=== PATIENT | female | born 2000 | race Caucasian/White ===

== ENCOUNTER 2020-02-04 02:30 | Outpatient (CLI) | payer MEDICAID, SELFPAY ==
--- NOTE | 2020-02-04 14:45 | DI.MRI_ITS ---
EXAM: MR BRAIN WO CLINICAL HISTORY: memory loss; known congenital brain changes [facility] [place]41.3 [place]NES[place], G93.89. TECHNIQUE: Multiplanar multisequence MRI of the brain was performed. CONTRAST MATERIAL: Noncontrast FINDINGS: VENTRICLES AND EXTRA AXIAL SPACES: Stable dilatation of the lateral ventricles, left greater than rig ht. HEMORRHAGE: None. CEREBRAL PARENCHYMA: Stable tiny high signal foci in the white matter directly adjacent to the superi or aspect of the left lateral ventricle. No focus of restricted diffusion to suggest acute infarct. N o space-occupying lesion identified. MIDLINE SHIFT: None. BRAINSTEM/CEREBELLUM: Normal. VISUALIZED PARANASAL SINUSES/MASTOIDS: Clear. The vascular flow voids appear intact. The orbits are unremarkable. IMPRESSION: Stable dilatation of the lateral ventricles. No acute abnormality. DATA REPOSITORY:
== END 2020-02-04 02:50 ==
PROVIDERS: PCP Nurse Practitioner; Visit Provider Psychiatry & Neurology Neurology
DX: G93.89 Other specified disorders of brain (principal); R41.3 Other amnesia
CPT/HCPCS: 70551

== ENCOUNTER 2020-11-02 18:14 | Emergency (ER) | payer MEDICAID, SELFPAY ==
--- NOTE | 2020-11-02 18:30 | DI.CT_ITS ---
EXAM: CT ABDOMEN PELVIS W CLINICAL HISTORY: right lower and mid abdominal pain. TECHNIQUE: Imaging Protocol: Axial computed tomography images with coronal and sagittal reformatted images were created and reviewed CONTRAST MATERIAL: Intravenous: Omnipaque 100cc Oral: None COMPARISON: No exams were available for comparison FINDINGS: VISUALIZED LUNG BASES: Mild benign-appearing increased markings both lung bases. No pleural effusion s. Tiny granuloma left lung extreme base.. ABDOMEN: There is no ascites. LIVER: There are no obvious focal hepatic lesions evident . GALLBLADDER/BILIARY: No obvious gallbladder pathology. CBD is not dilated. PANCREAS: No evidence of pancreatic mass nor dilatation of the pancreatic duct. SPLEEN: Spleen size is normal. Small splenule noted. No intrasplenic lesions. Splenic and portal v eins are patent. ADRENALS: There are no significant adrenal masses. KIDNEYS:No cysts evident. There are calculi in the lower pole of the right kidney, nonobstructive. T hese measure up to 6 millimeters. There are no calculi in the right ureter nor in the nondistended u rinary bladder. There are no calculi seen in the opposite-left kidney. The left ureter is significa ntly dilated down to the ureterovesical junction, exhibiting diameter up to 2.6 cm. There are no obs tructing radiopaque calculi evident nor obvious mass. This requires urology consultation. There is no prominent caliectasis in the ipsilateral-left kidney.. ABDOMINAL AORTA: Abdominal aorta is not enlarged. There is some mild nonspecific streaking around th e origin of the superior mesenteric artery without significant stenosis at this level. LYMPH NODES:There is no retroperitineal nor paraaortic adenopathy. ABDOMINAL WALL/GI: No evidence of significant anterior abdominal wall hernia. No bowel obstruction. PELVIS: GI: There is some dense material noted in the appendix but no evidence of acute appendicitis.No evide nce of sigmoid diverticulitis.No obvious colitis pattern. LYMPH NODES: There is no intrapelvic nor inguinal adenopathy. REPRODUCTIVE: Age appropriate. URINARY BLADDER: No calculi nor obvious masses evident OSSEOUS: No significant osseous lesions. IMPRESSION: 1. There is right nephrolithiasis. No obstruction on the right side. 2. Although there are no calculi in left kidney, the left ureter is significantly dilated up to 2.7 c m, this dilated all the way down to the ureterovesical junction. There is no obvious radiopaque calc ulus at this level. Urology consultation is recommended for this significant finding. RADIATION DOSE DELIVERED: 1,037.23mGy.cm Total DLP DATA REPOSITORY: All CT scans at this facility are submitted to the National Radiology Data Registry (NRDR) Dose Index Registry (DIR) with the [employer] (ACR). RADIATION OPTIMIZATION: All CT scans at this facility use at least one of these dose optimization te chniques: automated exposure control; mA and/or kV adjustment per patient size (includes targeted exa ms where dose is matched to clinical indication); or iterative reconstruction.
[2020-11-02 18:32] VITALS: BP 137/81; PULSE 99; RESP 18; TEMP 36.6; O2SAT 99
--- NOTE | 2020-11-02 19:05 | W.ED.GENAD ---
Discharge Plan Disposition Patient Disposition: HOME Condition: Good Discharge Details Clinical Impression: Abdominal bloating with cramps Primary Care Provider: Dilcia Sinclair ED Provider: Zac Crenshaw Home Meds and New Rx's Prescriptions: No Action No Known Home Meds RF: 0 Discharge Instructions Instructions: Abdominal Pain (ED) Additional Instructions: At this time your CAT scan shows no evidence of life-threatening abnormality or significant problem. I suspect that you may have a mild gastric bug, or generalized irritation of your intestines. Please stick with a liquid diet of soups, smoothies, occasional oatmeal, for the next few days. Take Zofran as needed for nausea. If you notice any worsening of your symptoms, or any new symptoms such as vomiting, diarrhea, fever, chills, shortness of breath, chest pain, numbness, weakness, or fainting , please return immediately to the emergency department for reevaluation. Please follow up with your primary care provider as soon as possible for reassessment and reevaluation. As always, it was a pleasure participating in your medical care today. Referrals: Dilcia Sinclair [Primary Care Provider] - Discharge Data Discharge Date/Time-TO BE ENTERED AT DEPARTURE: 11/02/20 20:05 Medical Decision Making 19-year-old female with a past medical history of cerebral ventriculomegaly, Chiari malformation, congenital duplication of the esophagus, previous kidney stones, presents today for evaluation of abdominal pain. The patient states that for the last 4 days she has had mild abdominal pain in the lower abdominal region, in addition to bloating. She did have some constipation but also diarrhea. She admits to nausea but no vomiting. She states that she did take some prune juice and this did procure a bowel movement but this did not change her symptoms at all. She denies any vaginal discharge, urinary complaints, and states that is been years since she has had a kidney stone. She denies any chest pain or shortness of breath. She is uncertain as to when her last menstrual period was. She has been eating and this does not seem to change her symptoms significantly. She has no other complaints at this time. No other modifying factors. Physical exam demonstrates mild lower abdominal tenderness in the periumbilical and right lower quadrant. No pelvic pain. No vaginal discharge. No signs of an acute surgical abdomen clinically. The patient's pain location symptoms we will get a CAT scan to rule out appendectomy, gently rehydrate, give Toradol, evaluate for kidney stone, monitor closely and reassess. 10 PM Laboratory work-up has returned, white count, no bandemia. Electrolytes normal, urinalysis negative. CT scan shows no evidence of acute process, reassessment demonstrates a notably nonsurgical abdomen, patient feels much better. Able to tolerate p.o. Will give Zofran for home, suspect mild viral gastroenteritis. Discussed red flags which to return. On reexamination no clinical evidence of acute appendicitis, or other surgical etiology. Discussed the case with patient's father. I have extensively reviewed the treatment plan and discharge instructions with the patient and their family. I have addressed all patient concerns at this time. The patient and family was made aware of what symptoms to monitor for that would warrant a return to the emergency department. Discussed the plan with the patient and family, they demonstrate verbal understanding and agreement with our assessment and plan at this time. The documentation in this chart was dictated using Quest app dictation software. Please excuse any dictation errors. FINDINGS: Liver: Normal. No mass. Gallbladder and bile ducts: Normal. No calcified stones. No ductal dilation. Pancreas: Normal. No ductal dilation. Spleen: 6 mm cystic focus in the spleen anteriorly. Adrenal glands: Normal. No mass. Kidneys and ureters: Cluster of nonobstructing calculi in the lower pole of the right kidney. No hydronephrosis. There is marked dilatation of the mid and distal left ureter to the level of the ureteropelvic junction. No obstructing ureteral calculi are identified. Stomach and bowel: Unremarkable. No obstruction. No mucosal thickening. Appendix: Normal appendix. Intraperitoneal space: Unremarkable. No free air. No significant fluid collection Vasculature: Unremarkable. No abdominal aortic aneurysm. Lymph nodes: Unremarkable. No enlarged lymph nodes. Urinary bladder: Unremarkable as visualized. Reproductive: Unremarkable as visualized. Bones/joints: Unremarkable. No acute fracture. Soft tissues: Tiny umbilical hernia containing fat. IMPRESSION: 1. Right nephrolithiasis. 2. Left hydroureter which may be chronic. Thank you for allowing us to participate in the care of your patient. Dictated and Authenticated by: Jhony Mosley MD 11/02/2020 8:11 PM Eastern Time ([place] & [place]) HPI General Date/Time Provider Initiated Documentation: 11/02/20 18:34. HPI Narrative: 19-year-old female with a past medical history of cerebral ventriculomegaly, Chiari malformation, congenital duplication of the esophagus, previous kidney stones, presents today for evaluation of abdominal pain. The patient states that for the last 4 days she has had mild abdominal pain in the lower abdominal region, in addition to bloating. She did have some constipation but also diarrhea. She admits to nausea but no vomiting. She states that she did take some prune juice and this did procure a bowel movement but this did not change her symptoms at all. She denies any vaginal discharge, urinary complaints, and states that is been years since she has had a kidney stone. She denies any chest pain or shortness of breath. She is uncertain as to when her last menstrual period was. She has been eating and this does not seem to change her symptoms significantly. She has no other complaints at this time. No other modifying factors. Related Data Home Medications Medication Instructions Recorded Confirmed Unknown [No Known Home Meds] 01/31/17 11/02/20 Allergies Allergy/AdvReac Type Severity Reaction Status Date / Time Sulfa (Sulfonamide Allergy Mild Skin Rash Unverified 11/02/20 18:37 Antibiotics) Penicillins AdvReac Mild Nausea Unverified 11/02/20 18:37 amoxicillin AdvReac Unknown Unverified 11/02/20 18:37 General Stated Complaint: Abd Prob SULEIMAN: 3 Review of Systems All systems reviewed & are unremarkable except as noted in HPI and below PFSH Medical History (Updated 11/02/20 @ 20:51 by Zac Crenshaw DO) Acanthosis nigricans Arachnoid cyst Cerebral ventriculomegaly Chiari malformation borderline 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 Nephrolithiasis Scoliosis thoracic spine Severe obesity Skull lesion hemangioma Syrinx of spinal cord Vesico-ureteral reflux Vitamin D deficiency Surgical History H/O lithotripsy age 2 S/P nasal surgery ?tumor excision Family History Other Dementia Depression Diabetes Heart disease Hypertension Social History Smoking/Tobacco Use Status: Never Smoking risk assessment performed?: Yes Alcohol Intake: never Drug use: Never Household members: family Housing: apartment Number of Children: 0 current occupation: Not currently employed Pets and animals: Yes Pets and animals: cat(s), dog(s) and guinea pig(s) What is your relationship status?: never Panel score (0-1 are the most socially isolated patients): 0 Seatbelt use: always Do you feel safe at home: Yes Do you feel safe in your relationship?: Yes Exam Narrative Exam Narrative: 1.Const: Well-nourished, Well-developed, appearing stated age 2.Eyes: PERRL, no conjunctival injection, and symmetrical lids. 3.ENT: Atraumatic external nose and ears. Moist MM. Neck: Symmetric, trachea midline, No thyromegaly. 4.CVS: +S1/S2, No murmurs or gallops. Peripheral pulses 2+ and equal in all extremities. Brisk capillary refill in all extremities. 5.RESP: Unlabored respiratory effort. Clear to auscultation bilaterally. No wheezes rales or rhonchi 6.GI: Soft, nondistended, no guarding, no rebound. Mild tenderness in the right lower and periumbilical region. Negative Rovsing sign. Mild pain at McBurney's point. No significant pelvic tenderness. No epigastric tenderness. Negative Todd sign. 7.MSK: Normocephalic/Atraumatic, Extremities w/o deformity or ttp No cyanosis or clubbing, Normal movement of all extremities 8.Skin: Warm, Dry. No rashes or lesions. 9.Neuro: civil rights attorney II-XII grossly intact. Sensation grossly intact, no focal neurologic deficits. 10.Psych: (AAO) x3. Appropriate mood and affect Course Vital Signs Vital signs: Vital Signs Temperature 36.6 C 11/02/20 18:32 Pulse 99 H 11/02/20 18:32 Respiratory Rate 18 11/02/20 18:32 Blood Pressure 137/81 11/02/20 18:32 Pulse Oximetry 99 11/02/20 18:32 Temperature 36.6 C 11/02/20 18:32 Temperature Source Temporal Artery Scan 11/02/20 18:32 Pulse 99 H 11/02/20 18:32 Respiratory Rate 18 11/02/20 18:32 Respiratory Effort Non-Labored 11/02/20 18:37 Blood Pressure 137/81 11/02/20 18:32 Blood Pressure Position Sitting 11/02/20 18:32 Pulse Oximetry 99 11/02/20 18:32 Oxygen Delivery Method Room Air 11/02/20 18:32 Oxygen Flow Rate 0 11/02/20 18:32 Pain Level 6 11/02/20 18:32
[2020-11-02 19:33] LABS: Abs Immature Grans 0.04 10^3/uL (0.0-0.06); Absolute Basophil Count 0.04 10^3/uL (0.0-0.2); Absolute Eosinophil Count 0.05 10^3/uL (0.0-0.7); Absolute Lymphocyte Count 1.49 10^3/uL (1.2-3.4); Basophils % 0.3; Eosinophils % 0.4; HGB 13.8 g/dL (11.2-15.7); Immature Grans % 0.3; Lymphocytes % 12.2; MCH 26.3 pg (27.0-33.0); MCHC 32.1 % (32.0-36.0); MCV 81.9 fL (80-95); MPV 10.1 fL (8.0-11.0); Monocytes % 6.1; Neutrophils % 80.7; Nucleated RBC 0 %; Platelet Count 326 10^3/uL (130-400); RBC 5.25 10^6/uL (3.93-5.22); RDW 12.5 % (11.7-14.6); RDW-SD 37.2 fL; WBC 12.21 10^3/uL (4.4-10.8)
[2020-11-02] MEDS: Omnipaque 350 MG/ML 100 ML BTL IJ (19:34)
[2020-11-02] MEDS: Normal Saline Flush 10 ML SYR IVP (19:35)
[2020-11-02] MEDS: Normal Saline - Diluent 50 ML VIAL IV (19:35)
[2020-11-02 19:39] LABS: Absolute Monocyte Count 0.74 10^3/uL (0.1-0.8); Absolute Neutrophil Count 9.85 10^3/uL (1.2-6.7)
[2020-11-02 19:46] LABS: ALT 37 U/L (14-59); AST 20 U/L (15-37); Albumin 3.8 g/dL (3.4-5.0); Alkaline Phosphatase 78 U/L (46-116); Anion Gap 9.8 mmol/L (3-11); BUN 18 mg/dL (7-18); Bilirubin, Total 0.3 mg/dL (0.2-1.0); CO2 27.2 mmol/L (21.0-32.0); Calcium 9.4 mg/dL (8.5-10.1); Chloride 99 mmol/L (98-107); Glucose 118 mg/dL (74-106); Lipase 82 U/L (73-393); Potassium 4.2 mmol/L (3.5-5.1); Sodium 136 mmol/L (136-145); Total Protein 8.4 g/dL (6.4-8.2)
[2020-11-02] MEDS: Normal Saline 1,000 ML 1000 ML IV (19:50)
[2020-11-02] MEDS: Ondansetron 4 MG/2 ML VIAL IVP (19:51)
[2020-11-02] MEDS: Ketorolac 30 MG/ML VIAL IVP (19:54)
[2020-11-02 19:56] VITALS: BP 135/86; PULSE 89; RESP 18; O2SAT 100
[2020-11-02 20:10] LABS: Bilirubin Negative (Negative); Blood Negative (Negative); Clarity Clear (Clear); Glucose 250 mg/dL (Negative); Ketones Negative (Negative); Leukocyte Esterase Negative (Negative); Nitrite Negative (Negative); Specific Gravity 1.025 (1.005-1.025); Urobilinogen 0.2 EU/dL (Up TO 0.2)
--- NOTE | 2020-11-02 20:12 | DI.VRAD_ITS ---
PROCEDURE INFORMATION: Exam: CT Abdomen And Pelvis With Contrast Exam date and time: 11/02/2020 6:44 PM Age: 19 years old Clinical indication: Localized; Other: Right lower and mid abdominal pain; Prior surgery; Surgery date: 6+ months; Surgery type: Lithotripsy, HX of kidney stones, ; patient HX: Rlq and mid abdominal pain TECHNIQUE: Imaging protocol: Computed tomography of the abdomen and pelvis with contrast. Radiation optimization: All CT scans at this facility use at least one of these dose optimization techniques: automated exposure control; mA and/or kV adjustment per patient size (includes targeted exams where dose is matched to clinical indication); or iterative reconstruction. Contrast material: OMNIPAQUE 350; Contrast volume: 100 ml; Contrast route: INTRAVENOUS (IV); COMPARISON: No relevant prior studies available. FINDINGS: Liver: Normal. No mass. Gallbladder and bile ducts: Normal. No calcified stones. No ductal dilation. Pancreas: Normal. No ductal dilation. Spleen: 6 mm cystic focus in the spleen anteriorly. Adrenal glands: Normal. No mass. Kidneys and ureters: Cluster of nonobstructing calculi in the lower pole of the right kidney. No hydronephrosis. There is marked dilatation of the mid and distal left ureter to the level of the ureteropelvic junction. No obstructing ureteral calculi are identified. Stomach and bowel: Unremarkable. No obstruction. No mucosal thickening. Appendix: Normal appendix. Intraperitoneal space: Unremarkable. No free air. No significant fluid collection. Vasculature: Unremarkable. No abdominal aortic aneurysm. Lymph nodes: Unremarkable. No enlarged lymph nodes. Urinary bladder: Unremarkable as visualized. Reproductive: Unremarkable as visualized. Bones/joints: Unremarkable. No acute fracture. Soft tissues: Tiny umbilical hernia containing fat. IMPRESSION: 1. Right nephrolithiasis. 2. Left hydroureter which may be chronic. Dictated and Authenticated by: Jhony Mosley MD. Ordering:HEATHER Frank MD
--- NOTE | 2020-11-02 21:04 | NUR.NOTE ---
Nursing Note: pt takes bottle of ODT zofran take home. Pt ambulatory steady gait.
== END 2020-11-02 20:05 | disposition home or self-care (01) ==
PROVIDERS: Emergency Provider Student in an Organized Health Care Education/Training Program; PCP Nurse Practitioner
DX: R14.0 Abdominal distension (gaseous) (principal); R10.31 Right lower quadrant pain; R19.7 Diarrhea, unspecified
CPT/HCPCS: 36415; 80053; 81025; 83690; 96361; 96374; 96375; 99285; 74177; 81003; 85025; J1885; J2405; J3490

== ENCOUNTER 2022-11-03 19:22 | Outpatient (REF) | payer MEDICAID, SELFPAY ==
[2022-11-03 19:02] LABS: Abs Immature Grans 0.02 10^3/uL (0.0-0.06); Absolute Basophil Count 0.05 10^3/uL (0.0-0.2); Absolute Eosinophil Count 0.16 10^3/uL (0.0-0.7); Absolute Lymphocyte Count 1.25 10^3/uL (1.2-3.4); Absolute Monocyte Count 0.46 10^3/uL (0.1-0.8); Absolute Neutrophil Count 5.73 10^3/uL (1.2-6.7); Basophils % 0.7; Eosinophils % 2.1; HGB 14.5 g/dL (11.2-15.7); Immature Grans % 0.3; Lymphocytes % 16.3; MCH 27.8 pg (27.0-33.0); MCV 84 fL (80-95); MPV 10.2 fL (8.0-11.0); Neutrophils % 74.6; Platelet Count 292 10^3/uL (130-400); RBC 5.22 10^6/uL (3.93-5.22); RDW 11.9 % (11.7-14.6); RDW-SD 36.4 fL; WBC 7.67 10^3/uL (4.4-10.8)
[2022-11-03 19:26] LABS: Anion Gap 7.9 mmol/L (3-11); BUN 14 mg/dL (7-18); CO2 27.1 mmol/L (21.0-32.0); CREATININE 0.8 mg/dL (0.55-1.02); Calcium 9.6 mg/dL (8.5-10.1); Chloride 99 mmol/L (98-107); Estimated GFR 106.77 (mL/min/1.73m2); FREE T4 1.02 ng/dL (0.76-1.46); Glucose 76 mg/dL (74-106); Potassium 4.2 mmol/L (3.5-5.1); Sodium 134 mmol/L (136-145); TSH 2.09 uIU/mL (0.36-3.74)
== END 2022-11-03 19:23 | disposition home or self-care (01) ==
LOC: NCHCN 19:22
PROVIDERS: PCP Nurse Practitioner Family; Visit Provider Nurse Practitioner Family
DX: E04.8 Other specified nontoxic goiter (principal); F41.8 Other specified anxiety disorders; E55.9 Vitamin D deficiency, unspecified
CPT/HCPCS: 80048; 82306; 84439; 84443; 85025

== ENCOUNTER → 2023-05-18 02:25 | Outpatient (CLI) | payer MEDICAID, SELFPAY ==
--- NOTE | 2023-05-18 | DI.US_ITS ---
Exam(s) US THYROID EXAM: US THYROID CLINICAL HISTORY: LOCALIZED SWELLING/MASS/LUMP NECK, R22.1, ? ENLARGED THYROID, E04.9. TECHNIQUE: Ultrasound thyroid performed using standard protocol. COMPARISON: No exams were available for comparison FINDINGS: ISTHMUS: 5.1 mm RIGHT LOBE: Size: 6.1 x 3.2 x 3.0 cm Echogenicity: There is a heterogeneous and hypervascular right lobe. Vascularity: Increased vascularity. Nodules: None. LEFT LOBE: Size: 6.2 x 3.4 x 3.9 cm Echogenicity: Diffusely heterogeneous without discrete nodule. Vascularity: Increased vascularity. Nodules: None. OTHER FINDINGS: None. IMPRESSION: Enlarged heterogeneous and hypervascular thyroid gland. The findings are suspicious for diffuse thyr oid disease such as thyroiditis. Please correlate with the patient's laboratory thyroid function nelli ues. DATA REPOSITORY:
== END ==
PROVIDERS: PCP Nurse Practitioner Family; Visit Provider Nurse Practitioner Family
DX: R22.1 Localized swelling, mass and lump, neck (principal)
CPT/HCPCS: 76536

== ENCOUNTER → 2023-07-06 01:42 | Outpatient (CLI) | payer MEDICAID, SELFPAY ==
--- NOTE | 2023-07-06 07:15 | DI.RAD_ITS ---
Exam(s) RF BARIUM SWALLOW EXAM: RF BARIUM SWALLOW CLINICAL HISTORY: dysphagia, food regurgitation, duplicate cyst,r13.10 TECHNIQUE: Esophagus performed both upright and recumbent GODOY position both single and air contrast technique CONTRAST MATERIAL: Oral barium Oral water soluble contrast was administered. COMPARISON: Prior CT scan October 2020 was reviewed. FINDINGS: CHEST X-RAY: The heart and pulmonary vasculature are within normal limits. The lungs are clear. No pl eural effusion or pneumothorax is present. Bidirectional thoracic scoliosis is noted. ESOPHAGRAM: Swallowing mechanism is grossly intact and there is no evidence of aspiration. No evidence of hypert ense upper esophageal sphincter. No evidence of Zenker's diverticulum. There are no abnormal tertia ry waves demonstrated in the esophagus. No evidence of achalasia. No fixed lesions. The GE junctio n appears unremarkable with no evidence of hiatal hernia nor Schatzki ring nor fixed lesion. Normal mucosal pattern seen at this level. There is no reflux demonstrated during this study. IMPRESSION: Normal esophogram RADIATION DOSE DELIVERED: amy Riley=58.0 mGy
[2023-07-06] MEDS: Barium Sulfate 60% W/V 355 ML BTL PO (09:56)
[2023-07-06] MEDS: Barium Sulfate 98% W/W 140 ML BTL PO (09:56)
[2023-07-06] MEDS: Simethicone/Sod Bicarb/Cit Ac, 4 gram PACKET 1 PACKET PO (09:58)
== END ==
PROVIDERS: PCP Nurse Practitioner Family; Visit Provider Surgery
DX: R11.10 Vomiting, unspecified (principal); R13.10 Dysphagia, unspecified
CPT/HCPCS: 74221; J3490

== ENCOUNTER 2023-08-01 12:26 | Day surgery (SDC) | payer MEDICAID, SELFPAY ==
--- NOTE | 2023-08-01 10:27 | ENDO_ITS ---
Date of service: 08/01/23 Time of Service: 13:53 Endoscopy Report DATE OF PROCEDURE: 08/01/23 PRE-OP DIAGNOSIS: Dysphagia and regurgitation POST-OP DIAGNOSIS: other (esophagitis due to reflux) PROCEDURE: EGD with biopsies SURGEON: Alena Squires ANESTHESIA TYPE: General:No Airway ESTIMATED BLOOD LOSS: 3 PATHOLOGY: other (Bx of esophagus at 32 cm and antrum) COMPLICATIONS: None DISPOSITION: same day INDICATIONS: Era is a very pleasant 22-year-old who comes in today to discuss having an upper endoscopy done. Her history of food regurgitation is suspicious for diverticulum. I have discussed this with Era and would like to start with a barium swallow prior to doing an upper endoscopy. This will show if there is a diverticulum and also give me an idea of her anatomy. The barium swallow was normal so she was schedule for an upper endoscopy. The procedure was described in detail as well as the possible complications. Her questions were answered. After conversation she had a good understanding of both the procedure and the complications and she wished to proceed. Risks, benefits and complications have been reviewed. Complications include but are not limited to bleeding, pain, perforation, sore throat, aspiration, and adverse reaction to the medications. Questions were entertained and answered to their satisfaction and they wished to proceed. No guarantees were given or implied. PROCEDURE DESCRIPTION: After informed consent was obtained the patient was take to the procedure room and placed in a supine position. Monitors were applied and a time out was done. The patients name, date of , procedure type, allergies to medications and metal in their body was reviewed. A bite block was placed and the patient was sedated. Once sedated and comfortable the gastroscope was advanced through the oropharynx which was grossly normal into the esophagus. The proximal and mid- esophagus were normal. In the distal esophagus there was mild inflammation noted. The scope was advanced into the stomach and through the pylorus into the 3rd portion of the duodenum. The duodenum was noted to be normal. The scope was retracted back into the stomach and biopsies were done to rule out H. pylori. There were no ulcers. The scope was retroflexed. The cardia and fundus were noted to be normal. There was no hiatal hernia noted. The scope was retracted back into the esophagus and biopsies were done of the GE junction to rule out Headley's. The Z line was regular. The GE junction was at 34 cm. Biopsies were done at 32 cm. The scope was removed and the patient was woken up and taken back to [facility] in stable condition. Follow up: 2 weeks
--- NOTE | 2023-08-01 10:30 | PDOC.DSDIS_ITS ---
Date of service: 08/01/23 Time of Service: 14:42 Discharge Plan Disposition Patient Disposition: Home Condition: Stable Discharge Details Reason For Visit: Dysphagia Attending Provider: Alena Squires Primary Care Provider: Yolanda Giron Home Meds and New Rx's Prescriptions: New omeprazole 40 mg capsule,delayed release(DR/EC) 40 mg PO DAILY Qty: 30 0RF Continued citalopram 20 mg tablet 20 mg PO DAILY Discharge Instructions Instructions: GERD (Gastroesophageal Reflux Disease) (DC) Additional Instructions: Findings: Mild inflammation of the esophagus Follow up: 2 weeks New Medication: Omeprazole 40 mg daily Please call if you develop: fevers >101.5 Nausea or Vomiting Abdominal pain that is not transient Rectal bleeding that is more then a tbsp A hard abdomen and inability to pass gas DAY SURGERY UNIT POST ENDOSCOPY INSTRUCTIONS Instructions for everyone who is given Anesthesia: For your safety, please do the following for the next 24 Hours: a. Do not drive or operate dangerous equipment b. Do not drink alcohol beverages or use any recreational drugs for the first 24 hours or while taking pain medications. The medications in your body may have a reaction that can be dangerous. c. Do not make any important decisions or sign any important papers 1. Generally there are no restrictions on your activity after a day or so has go ne by, but you may feel a bit fatigued for a few days. 2. After you arrive home you may have a light meal and return to a normal diet as you can tolerate it without feeling sick to your stomach. 3. After surgery, you may feel pain or discomfort. This should be only transient, but if it persists please contact your doctor. 4. If there are any questions regarding the findings of your procedure, please feel free to contact your doctor. 6. If you are unable to contact your doctor with a problem, contact the hospital at [phone]. 7. Continue all your regular medications unless directed otherwise. I understand the above instructions and have no questions. Signature of Patient or Responsible Adult Escort Date/Time Name of Responsible Adult Escort Signature of Nurse Date/Time Stand Alone Forms: Anesthesia Discharge Inst., Bj Ludwig (DSU) Referrals: Alena Squires MD [ [facility] STAFF PHYSICIAN] - Activity:: Activity as Tolerated Diet:: As Tolerated Discharge Orders Discharge Orders: Discharge Order (Routine); Ordered 08/01/23 Ordered By: Alena Squires DS: Diagnosis Discharge Diagnosis (1) Dysphagia: Status: Acute Asessment and Plan: Patient is seen and examined after their endoscopy. Patient has minimal sore throat. They have been able to tolerate liquids. They do not have any Nausea or Vomiting. They are not having any chest pain or shortness of breath. They have been able to pass gas and are not having any abdominal pain or distention. they have not vomited any blood. The vital signs have been stable-see nursing notes. We discussed findings on their endoscopy We reviewed the importance of lifestyle modifications- see diet recommendations We reviewed any new medications that the patient may be prescribed- see medicine reconciliation. Patient will either be sent a letter with the biopsy results or follow up in the office- see discharge instructions Patient was given explicit instructions for emergency follow up post endoscopy- see discharge instructions Patient verbalized understanding and was discharged in stable and satisfactory condition. See nursing notes.
[2023-08-01 12:48] VITALS: BP 108/66; PULSE 74; RESP 16; TEMP 36.8; O2SAT 100
[2023-08-01] MEDS: Lactated Ringers 1,000 ML 80 ML IV (13:07)
--- NOTE | 2023-08-01 13:21 | W.ANESPRE ---
General Info Date of Service Date Performed: 08/01/23 Height: 4 ft 10.5 in Weight: 82.1 kg Body Mass Index (BMI): 37.1 Surgical Procedure: Operation Date: 08/01/23 13:20 Proposed Procedure Side Surgeon p Gastroscopy Alena Squires MD Meds Allergies and Home Medications Allergies Allergy/AdvReac Type Severity Reaction Status Date / Time Sulfa (Sulfonamide Allergy Mild Skin Rash Unverified 08/01/23 13:02 Antibiotics) Penicillins AdvReac Mild Nausea Unverified 08/01/23 13:02 amoxicillin AdvReac Unknown Unverified 08/01/23 13:02 Home Medication Medication Instructions Recorded citalopram 20 mg tablet 20 mg PO DAILY 09/26/22 Current Visit Medications: Current Medications Generic Name Dose Route Start Last Admin Trade Name Freq PRN Reason Stop Dose Admin Ringer's Solution 1,000 mls @ 80 mls/hr 08/01/23 06:00 08/01/23 13:07 IV 08/30/23 23:59 80 mls/hr INFUSION ELIZABETH Administration IV Miscellaneous Supplies 1 each 08/01/23 06:00 Iv Access IV 08/30/23 23:59 DIRECTED ELIZABETH Ondansetron HCl 4 mg 08/01/23 10:30 Ondansetron 4 Mg/2 Ml Vial IVP 08/31/23 10:29 Q4H PRN PRN Nausea / Vomiting Sodium Chloride 0 ml 08/01/23 06:00 Normal Saline Flush 10 Ml Syr IV 08/30/23 23:59 PRN PRN Sodium Chloride 0 ml 08/01/23 06:00 Normal Saline 10 Ml Vial IJ 08/30/23 23:59 DIRECTED PRN Sterile Water 0 ml 08/01/23 06:00 Water,Injection,Sterile 10 Ml Vial IJ 08/30/23 23:59 DIRECTED PRN PFSH Active Problems Active Problems: Problem Status Onset Code Regurgitation of food R11.10 Dysphagia R13.10 Anxiety F41.9 Cerebral ventriculomegaly G93.89 Memory loss R41.3 Medical History Medical History Syrinx of spinal cord Nephrolithiasis Vitamin D deficiency Acanthosis nigricans Congenital duplication of esophagus non-communicating Severe obesity Chiari malformation borderline Arachnoid cyst Scoliosis thoracic spine Skull lesion hemangioma Hypocalciuria Vesico-ureteral reflux Surgical History Surgical History S/P nasal surgery ?tumor excision H/O lithotripsy age 2 Tobacco Smoking/Tobacco Use Status: Never Alcohol Alcohol Intake: never Substance Use Substance use: Never Substance use type: does not use Prental History History 0 Para Hx # Term Pregnancies Multiple births Hx # Pregnancies Ectopic pregnancies AB induced Hx Number of Living Children AB spontaneous Vital Signs and Lab Results Vital Signs Most Recent Vital Signs in EMR: Most Recent Vital Signs Temp Pulse Resp BP Pulse Ox 36.8 C 74 16 108/66 100 08/01/23 12:48 08/01/23 12:48 08/01/23 12:48 08/01/23 12:48 08/01/23 12:48 Point of Care Results Point of Care Results: POC- Test(urine) Negative 08/01/23 13:03 Lab Results Blood Type / Crossmatch: No Data to Display Complete Blood Count: No Data to Display Complete Metabolic Panel: No Data to Display Liver Function Panel: No Data to Display Coagulation Panel: No Data to Display Cardiac Panel: No Data to Display Arterial Blood Gas: No Data to Display Venous Blood Gas: No Data to Display Pancreas Panel: No Data to Display Thyroid Panel: No Data to Display Infectious Disease: No Data to Display Blood Cultures: No Data to Display Toxicology Panel: No Data to Display Panel: No Data to Display Anesthesia Assessment and Plan Anesthesia History Personal History: No History of Anesthesia Complications Family History: No Family History of Anesthesia Complications Exercise Tolerance Exercise Tolerance: Metabolic Equivalents>4 Pertinent Negatives Pertinent Negatives: No Major Cardiovascular Symptoms or Complaints and No Major Pulmonary Symptoms or Complaints Cardiac & Pulmonary Exam Cardiac Exam: Normal S1/S2 Heart Sounds Pulmonary Exam: Clear Bilateral Breath Sounds Implantable Cardiac Device Does patient have a Pacemaker or an ICD?: No Airway Exam Known Difficult Airway: No Mallampati Class: 1 Mouth Opening: Normal (> 3cm) Thyromental Distance: Greater than 3 cm Neck Range of Motion: Full ROM (short neck) Neck Circumference: Normal Teeth Condition: Normal Dentition (significant underbite) ASA Classification ASA Score: ASA 3 Emergency Case?: No NPO Status NPO Status: NPO Clears >2 hours, Solids >8 hours Status Status: Negative HCG Anesthesia Plan Resuscitation Status: Full Code Anesthesia Technique: MAC Anesthesia Airway Planned: Natural Airway Monitors Used: Standard Monitors
[2023-08-01 13:23] VITALS: BMI 37.1
--- NOTE | 2023-08-01 13:43 | STOM_PTH ---
PATIENT: Era Curran LOC: [facility] U#:[id number] AGE/SX: 22/F ROOM: RE08/01/[address]: Alena Squires MD : [id number] BED: DIS: 08/01/2023 SPEC #: [id number] RECD: 08/01/23 17:49 STATUS: SAMARIA REQ #: [id number] ANAHI: 08/01/23 13:[address]: Alena Squires DEPT: Surgical Specimen RECD BY: Laura Echevarria ENTERED: 08/01/23 17:50 SP TYPE: STOMACH OTHR DR: SAMIR BELL Tissues: 1 - STOMACH BIOPSY 2 - ESOPHAGUS BIOPSY Procedures: GROSS AND MICRO LEVEL 4 Comments: [id number]
[2023-08-01 14:00] VITALS: BP 102/65; PULSE 88; RESP 16; TEMP 36.8; O2SAT 98
--- NOTE | 2023-08-01 14:34 | W.ANESPOSTOP ---
Postoperative Evaluation Date, Time and Location Date Performed: 08/01/23 Time Performed: 13:58 Patient Location: Day Surgery Unit Vital Signs Most Recent Imported Vital Signs: Most Recent Vital Signs Temp Pulse Resp BP Pulse Ox 36.8 C 88 16 102/65 98 08/01/23 14:00 08/01/23 14:00 08/01/23 14:00 08/01/23 14:00 08/01/23 14:00 Pain Score Most Recent Pain Score: Most Recent Pain Score Pain Level 0 08/01/23 14:00 Assessment Mental Status: Awake (Alert & Oriented to Patient Baseline) Airway and Respiratory Function: Patent airway with normal (patient baseline) respiratory exam Cardiovascular Function: Hemodynamically Stable Hydration Status: Adequately Hydrated Nausea & Vomiting: No Nausea or Vomiting Pain: Pt. Denies Any Pain Peripheral Nerve Block: Patient did not receive a nerve block
== END 2023-08-01 15:25 | disposition home or self-care (01) ==
LOC: SUR 12:27
PROVIDERS: PCP Nurse Practitioner Family; Visit Provider Surgery
PROC: 0DJ68ZZ Inspection of Stomach, Via Natural or Artificial Opening Endoscopic (ICD-10-PCS; CPT 43235; principal; 2023-08-01 13:15)
DX: K21.00 Gastro-esophageal reflux disease with esophagitis, without bleeding (principal); R13.10 Dysphagia, unspecified; F41.9 Anxiety disorder, unspecified
CPT/HCPCS: 43239; 81025; 88305; J2405

== ENCOUNTER 2024-02-13 13:04 | Outpatient (REF) | payer MEDICAID, SELFPAY ==
[2024-02-13 15:34] LABS: Abs Immature Grans 0.04 10^3/uL (0.0-0.06); Absolute Basophil Count 0.05 10^3/uL (0.0-0.2); Absolute Eosinophil Count 0.05 10^3/uL (0.0-0.7); Absolute Lymphocyte Count 1.42 10^3/uL (1.2-3.4); Absolute Monocyte Count 0.58 10^3/uL (0.1-0.8); Basophils % 0.5 %; Eosinophils % 0.5 %; HCT 45.6 % (36.0-46.0); Immature Grans % 0.4 %; Lymphocytes % 13.2 %; MCH 27.6 pg (27.0-33.0); MCHC 32.9 % (32.0-36.0); MCV 84 fL (80-95); MPV 10.7 fL (8.0-11.0); Monocytes % 5.4 %; Platelet Count 336 10^3/uL (130-400); RBC 5.43 10^6/uL (3.93-5.22); RDW 11.4 % (11.7-14.6); RDW-SD 34.3 fL; WBC 10.74 10^3/uL (4.4-10.8)
[2024-02-13 15:43] LABS: ESR 22 mm/hr (0-20)
[2024-02-13 16:06] LABS: ALT 35 U/L (14-59); AST 23 U/L (15-37); Alkaline Phosphatase 99 U/L (46-116); Anion Gap 11.6 mmol/L (3-11); BUN 17 mg/dL (7-18); Bilirubin, Total 0.41 mg/dL (0.2-1.0); CO2 24.4 mmol/L (21.0-32.0); CREATININE 0.8 mg/dL (0.55-1.02); Calcium 9.5 mg/dL (8.5-10.1); Chloride 102 mmol/L (98-107); Estimated GFR 105.45 (mL/min/1.73m2); Glucose 176 mg/dL (74-106); Potassium 4.4 mmol/L (3.5-5.1); Sodium 138 mmol/L (136-145); TSH (W/Ref FT4) 2.99 uIU/mL (0.36-3.74); Total Protein 7.9 g/dL (6.4-8.2)
[2024-02-13 22:36] LABS: C Diff PCR Negative (Negative)
[2024-02-14 10:02] LABS: IgA 128 mg/dL (85-499); Interpretation (See Note); Tissue Transglutaminase IgA <4.0 CU (<20.0)
[2024-02-14 22:18] LABS: Campylobacter PCR Negative (Negative); Salmonella PCR Negative (Negative); Shiga Toxin PCR Negative (Negative); Shigella/Enteroinvasive Ecoli Negative (Negative)
== END 2024-02-13 13:05 | disposition home or self-care (01) ==
LOC: LBN 13:04
PROVIDERS: Visit Provider Nurse Practitioner Family
DX: R19.7 Diarrhea, unspecified (principal)
CPT/HCPCS: 80053; 82784; 83516; 85652; 87329; 87493; 87505; 84443; 85025; 87177

== ENCOUNTER 2024-12-18 11:49 | Outpatient (REF) | payer MEDICAID, SELFPAY ==
[2024-12-18 17:34] LABS: TSH (W/Ref FT4) 3.11 uIU/mL (0.36-3.74)
== END 2024-12-18 11:50 | disposition home or self-care (01) ==
LOC: NCHCN 11:49
PROVIDERS: Visit Provider Nurse Practitioner Family
DX: E04.9 Nontoxic goiter, unspecified (principal)
CPT/HCPCS: 84443